=== PATIENT | male | born 1940 | race Caucasian/White ===

== ENCOUNTER → 2016-10-02 | Outpatient (CLI) | payer OTHER ==
[~2016-10-02] MED LIST: AMLODIPINE BESYL5 MG PO; ASPIRIN81 M2 PO; BENICAR PO; COUMADIN6 MG PO; FISH OIL 1,0001 EAC3 PO; HYDROCODON-ACE1 EAC5 PO; LIPITOR PO; PLAVIX PO; RAPAFLO8 MG PO; TYLENOL325 M1 PO; TYLOX 5/500 CAP1 CAP PO; VIT B-12 PO
--- NOTE | ~2016-10-02 | CR7 ---
[facility] A Service of [facility] RADIOLOGY TEXT RESULTS PATIENT: DARIANA MANN LOCATION: [facility] : 38 UNIT #: [id number] AGE: [address]: Juanita Swan APRN SEX: M ORDER DR: [id number] [facility] [address] [place], [place] [address] [id number] O MR#: [id number] Acc #: [id number] NAME: DARIANA MANN : 1940 SEX: M STUDY DATE/TIME: 10/02/2016 09:56 UNIT: [facility] ROOM: STUDY DESCRIPTION: CR Abdomen Single AP View Attending Physician: Juanita Swan Aprn Referring Physician: Juanita Swan Aprn Ordering Physician: Juanita Swan Aprn Primary Care Physician: Jenna oCronel M.D. MEDICAL IMAGING REPORT This report is preliminary unless electronic signature is present EXAM Abdomen one-view, 10/02/2016 09:56 hours HISTORY 2-week history of abdominal discomfort with constipation. COMPARISON Ultrasound kidneys, 09/27/2012. No prior abdominal film or CT. FINDINGS 1 view of the abdomen and one view of the pelvis were performed. The hemidiaphragms are not included. The right flank is excluded. There is no evidence of bowel obstruction or dilatation. The stool burden is felt within normal limits. There is slightly increased amount of stool at the rectum with diameter 6.0 cm. There is degenerative change at the lumbosacral junction. No fracture seen. IMPRESSION 1. No evidence of bowel distension or overall increase in stool burden. There is stool in the rectum distending the rectum to 6.3 cm. 2. Degenerative change at the lumbosacral junction and left hip. Dictated by... Carmel Suarez M.D. THIS IS AN ELECTRONICALLY VERIFIED REPORT Carmel Suarez M.D. at 10/02/2016 2:29 PM Rashard TD: 10/02/2016 10:59 JOB #: [id number] MEDICAL IMAGING REPORT [facility]. [facility] A Service of [facility] RADIOLOGY TEXT RESULTS PATIENT: DARIANA MANN LOCATION: [facility] #: [id number] : 38 UNIT #: [id number] AGE: [address]: Juanita Swan APRN SEX: M ORDER DR: Page 1 of 1 COPY
== END | disposition home or self-care (01) ==
LOC: CRAD 09:15
DX: K59.00 Constipation, unspecified (principal); M43.07 Spondylolysis, lumbosacral region
CPT/HCPCS: 74000